=== PATIENT | female | born 1985 | race Hispanic/Latino ===

== ENCOUNTER 2023-04-22 17:18 | Emergency (ER) | payer MEDICAID, SELFPAY ==
[2023-04-22] VITALS (8 sets, daily range): BP systolic 104–129; BP diastolic 64–87; PULSE 77–87; RESP 14–23; TEMP 36.8; O2SAT 98–100
--- NOTE | ~2023-04-22 | XR_ITS ---
Clinical Indication: Syncope PA and lateral views of the chest: Comparison: None Findings: The lungs are clear, without evidence of focal consolidation or pleural effusion. Cardiome diastinal silhouette is within normal limits. Bones and soft tissues are unremarkable. Impression: Normal chest. Reviewed, dictated and finalized at location . Impression: Normal chest.
--- NOTE | ~2023-04-22 | CT_ITS ---
Clinical Indication: Chest pain CT Scan of the Chest with Contrast: Technique: Contiguous sections were acquired throughout the chest after intravenous administration of 100 cc of Omnipaque 350. Dose reduction technique was used on this scan by utilizing automated expos ure control and iterative reconstruction technique. The dose-length product (DLP) was 212.98 mGy-cm. Findings: There is no evidence of any significant mediastinal, hilar or axillary lymphadenopathy. There is no f illing defect in the pulmonary arterial tree to suggest pulmonary embolus. There is no evidence of ao rtic dissection or aneurysm. There is no evidence of pleural or pericardial effusion. The lungs are clear. No pulmonary nodules or infiltrates are noted. Images through the upper abdomen reveal no abnormalities. Impression: No evidence of pulmonary embolus, aortic dissection, or aortic aneurysm. Clear lungs. Reviewed, dictated and finalized at [facility]. Impression: No evidence of pulmonary embolus, aortic dissection, or aortic aneurysm. Clear lungs.
--- NOTE | 2023-04-22 17:33 | ED.PSYCH ---
HPI - Psych General Chief Complaint: Chest Pain Stated Complaint: SI Time Seen by Provider: 04/22/23 17:27 Related Data Allergies Allergy/AdvReac Type Severity Reaction Status Date / Time No Known Allergies Allergy Verified 04/22/23 17:48 Course Course Emergency Course: Chart review performed. Patient reportedly here with SI.
--- NOTE | 2023-04-22 18:07 | ECG_ITS ---
Measurements Intervals [place] Rate: 77 P: 34 AR: 128 QRS: 53 QRSD: 114 T: 7 QT: 393 QTc: 445 Interpretive Statements SINUS RHYTHM NORMAL ECG NO PREVIOUS ECG AVAILABLE FOR COMPARISON Electronically Signed On 04-22-2023 20:56:54 CDT by Rosalino Leonard D.O.
--- NOTE | 2023-04-22 18:10 | ED.SYNCOPE ---
HPI - Syncope General Chief Complaint: Chest Pain Stated Complaint: SI Time Seen by Provider: 04/22/23 17:27 History of Present Illness HPI narrative: Patient is a 38-year-old female with history of depression here after syncopal episode. Patient states that she has been experiencing midsternal chest pain for the last 2 days. Notes that the chest pain radiates into her neck and up into her head causing a headache. She notes that today she was in her car crying because of the pain. She pulled over the side of the road and a family member joined her. Family members at bedside that and notes that patient was crying excessively and then had a syncopal episode. She states that she lost consciousness and had some muscle jerking. She notes that the episode lasted about 1 minute she did wake up but was somewhat slow to talk however she was holding conversation. On EMS arrival patient was conversation with EMS and then had a 2nd syncopal episode with EMS. Patient had reportedly initially told someone on scene that she wanted to kill herself however patient adamantly denies this. She denies any thoughts of suicide or homicide. She states that she has 4 young children at home and that she would never kill herself. She notes that her depression has been worse recently, no prior suicide attempts. She was recently referred to a therapist by her primary care doctor who she plans to follow up with urgently. No prior PE or DVT. No lower extremity edema or calf tenderness. She is unsure of her last menstrual cycle, notes that she had a couple days of spotting 3 days ago which was flagger than normal. Related Data Allergies Allergy/AdvReac Type Severity Reaction Status Date / Time No Known Allergies Allergy Verified 04/22/23 17:48 Review of Systems Review of Systems: CONSTITUTIONAL: Denies fever, chills, or sweats. EYES: Denies visual changes, redness, or discharge. ENT: Denies rhinorrhea, congestion, sore throat, or otalgia. CARDIOVASCULAR: chest pain, syncope, no palpitations, or edema. RESPIRATORY: Denies cough or dyspnea. GASTROINTESTINAL: Denies abdominal pain, nausea, vomiting, or diarrhea. GENITOURINARY: Denies dysuria or hematuria. SKIN: Denies rash or itching. MUSCULOSKELETAL: Denies back pain, joint pain, or myalgia. NEUROLOGIC: Denies headache, numbness, or weakness. PSYCHIATRIC: Depression, no SI/HI Exam Narrative: GENERAL: Well-appearing, well-nourished, and in no acute distress. HEAD: Normocephalic, atraumatic. EYES: PERRLA and EOMI. ENT: Nares clear. Mucous membranes moist. NECK: Supple. CHEST: Clear to auscultation. No respiratory distress. HEART: Regular rate and rhythm. Normal peripheral pulses. ABDOMEN: Soft, nontender, nondistended. EXTREMITIES: Normal range of motion. No edema. SKIN: Warm, dry, no rash. NEURO: No focal deficits. Alert and oriented x3. PSYCH: Tearful, no SI/HI Course Course Emergency Course: Chart review performed, here for syncopal episode. Triage vitals within normal limits. Patient seen evaluated. In no acute distress. Patient had multiple syncopal episodes today, they sound to be much more syncopal episodes and seizure-like activity. They were brought on by extreme emotion. Will do cardiac workup, chest x-ray, D-dimer. Low risk for PE/DVT. test is ordered. Will additionally give small dose of Ativan. Lab work and imaging reviewed. CBC grossly unremarkable, d-dimer positive, PE study ordered. Awaiting troponin. Electrolytes grossly normal. PE study negative, negative. Patient given Toradol and Tylenol for pain. Feeling much better. Interpretive services used for initial history as well as re-evaluation and discharge. All questions and concerns answered. Patient is to follow-up close with her primary care doctor as well as the therapist that she has been referred to. She is advised to return to the emergency department at any time should sh
[2023-04-22] MEDS: LORazepam (*CRX) 0.5 MG TABLET PO (18:51)
[2023-04-22 18:56] LABS: Basophils Percent Auto 0.5 % (0.2-1.2); Eosinophils Absolute Auto 0.2 K/mm3 (0-0.3); Eosinophils Percent Auto 2.9 % (0-4.4); Hematocrit 41.7 % (37.0-47.0); Hemoglobin 13.5 g/dL (12.0-15.0); Immature Granulocyte Absolute 0.02 K/mm3 (0.00-0.031); Immature Granulocyte Percent A 0.2 % (0-0.5); Lymphocytes Absolute Auto 1.76 K/mm3 (0.9-3.2); Lymphocytes Percent Auto 21.4 % (18.3-44.2); Mean Corpuscular HGB Conc 32.4 g/dl (32-36); Mean Corpuscular Hemoglobin 27.5 pg (26-34); Mean Corpuscular Volume 84.9 fl (80-100); Mean Platelet Volume 10.6 fl (7.4-10.4); Monocytes Absolute Auto 0.5 K/mm3 (0.1-0.6); Monocytes Percent Auto 5.5 % (2.6-8.5); Neutrophils Absolute Auto 5.7 K/mm3 (1.3-6.7); Neutrophils Percent Auto 69.5 % (45.5-73.1); Platelet Count Result 332 k/mm3 (150-375); Red Blood Count 4.91 M/mm3 (4.2-5.4); Red Cell Distribution Width 13.4 % (11.5-14.5); White Blood Count 8.2 K/mm3 (4.5-10.0)
[2023-04-22 19:05] LABS: Alanine Aminotransferase 28 U/L (6-35); Albumin Level 4.4 g/dL (3.5-5.1); Alkaline Phosphatase 84 U/L (38-126); Anion Gap 9 mmol/L (8-16); Aspartate Amino Transferase 31 U/L (14-36); Blood Urea Nitrogen 15 mg/dL (7-17); Calcium 8.8 mg/dL (8.4-10.2); Carbon Dioxide 25 mmol/L (22-30); Chloride 108 mmol/L (98-107); Estimated CRCL calculation 95 ml/min; Estimated Glomerular Filt Rate > 60; Glucose 103 mg/dL (65-110); Potassium 3.5 mmol/L (3.4-5.0); Sodium 142 mmol/L (137-145)
[2023-04-22 19:36] LABS: D Dimer 0.69 ug/mL (<0.48)
[2023-04-22 20:05] LABS: Troponin I < 0.012 ng/mL (0.000-0.034)
[2023-04-22] MEDS: KETOROLAC 15 MG/ML VIAL (*BKC) IV PUSH (20:28)
[2023-04-22] MEDS: ACETAMINOPHEN 500 MG TABLET 1000 MG PO (20:28)
[2023-04-22 20:46] LABS: NT Pro B Type Natriuretic Pept 26 pg/mL (19.9-100)
== END 2023-04-22 21:04 | disposition home or self-care (01) ==
PROVIDERS: Emergency Provider Student in an Organized Health Care Education/Training Program
DX: R55 Syncope and collapse (principal)
CPT/HCPCS: 36415; 71046; 71275; 80053; 81025; 83880; 84484; 85025; 85380; 93005; 96374; 99284; A9270; J1885; Q9967